=== PATIENT | female | born 1935 | race Caucasian/White ===

== ENCOUNTER → 2020-11-18 | Outpatient (CLI) | payer MEDICARE, BC ==
[~2020-11-18] MED LIST: ACETAMINOPHEN325 MG PO; ADVIL200 MG PO; ALDACTONE 25MG25 MG PO; ALDACTONE25 MG PO; ASPIRIN CHEWABL81 MG PO; BETA CAROT25000 UNIT PO; CALCIUM 500 +1 EAC3 PO; COLACE100 MG PO; DOXYCYCLINE HY100 M2 PO; ENTRESTO 24 MG1 EACH PO; ENTRESTO 49 MG1 EACH PO; FAMOTIDINE40 MG PO; FUROSEMIDE20 MG PO; FUROSEMIDE40 MG PO; GLUCOSAMINE1000 MG PO; K-DUR TAB 20 M20 MEQ PO; LEVAQUIN500 MG PO; LIPITOR TAB 2020 MG PO; LOVENOX40 MG/0.4 SQ; METOPROLOL SUCC25 MG PO; METOPROLOL SUCC50 MG PO; METOPROLOL TART25 MG PO; NEURONTIN100 MG PO; NORCO 5-325 TA1 EACH PO; OMNICEF 300 MG300 MG PO; OXYBUTYNIN CHLOR5 MG PO; TRAMADOL HCL50 MG PO; TRIAMTERENE-HC1 EAC1 PO; ZESTRIL40 MG PO
== END ==
LOC: RAD 14:19
DX: M54.9 Dorsalgia, unspecified (principal); M51.36 Other intervertebral disc degeneration, lumbar region
CPT/HCPCS: 72110

== ENCOUNTER → 2021-02-11 | Outpatient (CLI) | payer MEDICARE, BC | LOC: KOH-I 15:36 | DX: R07.2 Precordial pain (principal); M25.512 Pain in left shoulder; M25.511 Pain in right shoulder; M19.012 Primary osteoarthritis, left shoulder; M19.011 Primary osteoarthritis, right shoulder | CPT/HCPCS: 71046; 73030 ==